=== PATIENT | male | born 1995 | race Caucasian/White ===

== ENCOUNTER 2020-12-10 01:11 | Inpatient (IN) | payer BC ==
[~2020-12-10] VITALS: Ht 172.8 cm; Wt 90.9 kg
[2020-12-10] VITALS (11 sets, daily range): BP systolic 124–150; BP diastolic 60–83; PULSE 55–91; TEMP 98.2–98.7
[2020-12-10 01:37] LABS: HEMATOCRIT 42.1 % (42.0-52.0); HEMOGLOBIN 14.4 g/dl (13.5-18.0); MEAN CELL VOLUME 90 fl (80.0-100.0); MEAN CORPUSCULAR HEMOGLOBIN 31 pg (27.0-31.0); MEAN CORPUSCULAR HGB CONC 34 g/dl (33.0-37.0); MEAN PLATELET VOLUME 12.1 fl (7.4-10.4); PLATELET COUNT 264 K/mm3 (130-400); RED BLOOD COUNT 4.69 M/mm3 (4.20-5.60)
[2020-12-10 01:48] LABS: ALBUMIN 4.1 gm/dL (3.5-5.0); BILIRUBIN,TOTAL 0.4 mg/dL (0.0-1.0); CALCIUM 9.4 mg/dL (8.4-10.2); CREATININE, serum 0.85 (0.66-1.25); POTASSIUM 3.5 mmol/L (3.4-5.0); TOTAL PROTEIN 7.5 gm/dL (6.4-8.2)
[2020-12-10 01:55] LABS: BASOPHIL 1 % (0-2); EOSINOPHIL 1 % (0-4); LYMPHOCYTE 42 % (20.0-51.0); NEUTROPHILS 52 % (42.0-75.2); PLATELET ESTIMATE NORMAL (NORMAL)
[2020-12-10 02:08] LABS: COLLECTION METHOD CLEAN CATCH
[2020-12-10 02:16] LABS: MUCOUS Present /lpf; PH 5 (5-8); SQUAMOUS EPITHELIAL None Seen /hpf; URINE APPEARANCE Clear; URINE BACTERIA None Seen /hpf; URINE BILIRUBIN Negative (NEGATIVE); URINE BLOOD Negative (NEGATIVE); URINE COLOR Yellow; URINE GLUCOSE Negative (NEGATIVE); URINE KETONE Negative (NEGATIVE); URINE LEUKOCYTE ESTERASE Negative (NEGATIVE); URINE NITRATE Negative (NEGATIVE); URINE PROTEIN(semi-quant) Negative (NEGATIVE); URINE RBC 0-2 /hpf; URINE UROBILINOGEN Negative (NEGATIVE)
--- NOTE | 2020-12-10 06:09 | NUR ---
PATIENT WAS RECEIVED FROM ED ON A WHEELCHAIR BREATHING ON ROOM AIR.HAS 2 IV ACCESS ON BOTH FOREARMS.AOX4.DENIES PAIN.ORIENTATION DONE.NO OTHER NEEDS AT THIS TIME.
[2020-12-10 06:38] LABS: CLOSTRIDIUM DIFF A/B NEG; CLOSTRIDIUM DIFF A/B INTERP No C.diff present
--- NOTE | 2020-12-10 07:00 | NUR ---
Report receivd from BUBBA Mcgregor. Pt in bed resting, denies needs, will continue to moniotr.
[2020-12-10 07:20] LABS: HEMOGLOBIN 12.7 g/dl (13.5-18.0)
[2020-12-10 07:21] LABS: HEMATOCRIT 36.4 % (42.0-52.0)
[2020-12-10 08:17] LABS: TRICYCLIC ANTIDEPRESS URINE NEGATIVE
--- NOTE | 2020-12-10 08:26 | NUR ---
Assessment charted. PT resting in bed after visiting with Hospitalist, GI and Surgeons. Stool is dark thick and liquid bloody in appearance. Pt states this was his 6th like this since yesterday. Denies pain. INT to LFA. IVF to RFA. Will conitnue to monitor.
--- NOTE | 2020-12-10 09:35 | NUR ---
MYRIAM met with the patient and his mother, Guy (ph#[phone]), to discuss discharge plan. 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 He reports independence with ADLs and does not have any DME. The patient states that he does not have a PCP here. He was interested in obtaining a list of the different providers in [place]. MYRIAM provided him with that list. He receives his medications from [facility]. The patient does not have a DPOA-HC. He reports that he is not and does not have any children. His parents are his next of kin: Guy and Yang. They live in [place], [place]. The patient plans to return home upon discharge and his mother plans to stay with him for a few days when he returns home. No additional needs at this time. *Discharge plan: home with mother support*
[2020-12-10 11:02] LABS: HEMOGLOBIN 11.9 g/dl (13.5-18.0)
[2020-12-10 11:05] LABS: HEMATOCRIT 34.5 % (42.0-52.0)
--- NOTE | 2020-12-10 19:20 | NUR ---
Pt taken down to OR at 1715 with OR staff. Pt showered and used surgical scrub preop, preop meds given, pt taken down with mother at bedside. Report given to nancy hill who will resume care.
--- NOTE | 2020-12-10 19:39 | NUR ---
PATIENT WAS RECEIVED FROM PACU ON A BED.ON RA.DENIES PAIN.MOTHER IS IN THE ROOM.VITALS NORMAL.NO OTHER NEEDS AT THIS TIME.
[2020-12-10 20:35] LABS: HEMOGLOBIN 11.7 g/dl (13.5-18.0)
[2020-12-10 20:36] LABS: HEMATOCRIT 34.3 % (42.0-52.0)
--- NOTE | 2020-12-10 22:23 | NUR ---
PATIENT IS CALM IN THE ROOM LAP SITES CDI.NO OTHER NEEDS AT THIS TIME.
[2020-12-11 02:36] LABS: HEMATOCRIT 33.3 % (42.0-52.0); HEMOGLOBIN 11.5 g/dl (13.5-18.0)
[2020-12-11 04:15] VITALS: BP 125/66; PULSE 55; TEMP 97.8
--- NOTE | 2020-12-11 05:57 | NUR ---
PATIENT HAD A CALM NIGHT.VITALS STABLE.TOLERATING ORAL INTAKE WELL.NO BLEEDING OBSERVED ON THE LAP SITES.DENIES PAIN.REPORTS OF FATIQUE.NO OTHER NEEDS AT THIS TIME.
[2020-12-11 07:35] LABS: BASO % 0.1 % (0.0-2.0); HEMOGLOBIN 11.4 g/dl (13.5-18.0); LYMPH # 1.4 (1.2-3.4); LYMPH % 12.2 % (20.0-51.0); MEAN CELL VOLUME 92 fl (80.0-100.0); MEAN CORPUSCULAR HEMOGLOBIN 31 pg (27.0-31.0); MEAN CORPUSCULAR HGB CONC 34 g/dl (33.0-37.0); MEAN PLATELET VOLUME 12.9 fl (7.4-10.4); MONO # 0.2 (0.1-0.6); MONO % 1.4 % (1.7-9.3); PLATELET COUNT 209 K/mm3 (130-400); REDCELL DISTRIBUTION WIDTH-CV 13.1 % (11.5-14.5)
[2020-12-11 07:40] VITALS: BP 121/63; PULSE 57; TEMP 97.6
[2020-12-11 07:43] LABS: CALCIUM 8.8 mg/dL (8.4-10.2); CREATININE, serum 0.74 (0.66-1.25); POTASSIUM 4.3 mmol/L (3.4-5.0)
--- NOTE | 2020-12-11 10:07 | NUR ---
PATIENT RESTING COMFORTABLY IN BED. R WRIST IV RUNNING NS AT 125ML/HR. MORNING MEDICATIONS GIVEN. BREATH SOUNDS CLEAR TO AUSCULTATION IN ALL [place]. HEART RATE AND RHYTHM NORMAL. BOWEL SOUNDS PRESENT IN ALL FOUR QUADRANTS. NO EDEMA NOTED TO EXTREMITIES. SCDS ON. PATIENT REPORTS PAIN AT A 3/10 AND ACHING IN HIS SHOULDER AND NECK. PT REPORTS SHARP CRAMPING IN HIS ABDOMEN WHEN BENDING FORWARD. ABDOMEN IN ROUND AND SOFT, PT REPORTS NO PAIN UPON PALPATION. INCISION SITE ARE CLEAN, DRY, AND INTACT, NO REDNESS OR SWELLING NOTED TO 3 INCISION SITES. PT STATES HE HAS NO PAIN TO INCISION SITES. PT TOLERATING DIET WELL. PT ASKING TO START AMBULATING. WILL CONTINUE TO MONITOR.
--- NOTE | 2020-12-11 11:02 | NUR ---
Initial visit; Patient a [employer] Student and thanked [employer] for looking in on him. [employer] offered [place] [place] [facility]'s blessings and a get well message.
[2020-12-11 12:21] VITALS: BP 122/54; PULSE 74; TEMP 98
[2020-12-11] MEDS ORDERED: NORCO 325 MG-51 TAB PO (17:11)
[2020-12-11 17:30] VITALS: BP 120/57; PULSE 79; TEMP 98.2
--- NOTE | 2020-12-11 18:07 | NUR ---
Discharge instructions discussed w/pt and his mom. All questions answered. IVs to left and right forearms removed, tips intact. Pt escorted out w/all belongings.
== END 2020-12-11 18:08 | disposition home or self-care (01) | DRG 331 ==
LOC: COL.ER 01:11 → MEDICAL 03:43
PROVIDERS: Emergency Medicine; Nurse Practitioner Family; Surgery; ADMIT Student in an Organized Health Care Education/Training Program
PROC: 0DB84ZZ Excision of Small Intestine, Percutaneous Endoscopic Approach (ICD-10-PCS; principal; 2020-12-10 17:30)
DX: Q43.0 Meckel's diverticulum (displaced) (hypertrophic) (principal); D72.829 Elevated white blood cell count, unspecified; E87.6 Hypokalemia; R91.1 Solitary pulmonary nodule; F17.200 Nicotine dependence, unspecified, uncomplicated; F41.9 Anxiety disorder, unspecified; K22.9 Disease of esophagus, unspecified
CPT/HCPCS: 99222-AI; 99232-AI; 99238; A4314; C9113; J0690; J1100; J1885; J2250; J2405; J2704; J3010; J3480; J7030; J7120; Q9967